=== PATIENT | female | born 1965 | race Caucasian/White ===

== ENCOUNTER → 2021-07-23 | Outpatient (CLI) | payer BC ==
[~2021-07-23] MED LIST: CETIRIZINE HCL10 MG PO; FLUTICASONE PROPIONA; VITAMIN B COMP1 EACH PO; VITAMIN D21250 MCG PO
[2021-07-23 09:24] LABS: HEMOGLOBIN 14.4 gm/dl (12.3-15.3); RED BLOOD COUNT 4.79 M/UL (4.00-5.10); WHITE BLOOD COUNT 8.5 K/UL (4.5-11.0)
[2021-07-23 09:39] LABS: BUN/CREATININE RATIO 20 (0-10)
== END ==
LOC: OPSV2 08:00
PROVIDERS: Orthopaedic Surgery
DX: Z01.812 Encounter for preprocedural laboratory examination (principal); G56.01 Carpal tunnel syndrome, right upper limb
CPT/HCPCS: 36415; 80048; 85025

== ENCOUNTER → 2021-07-26 | Day surgery (SDC) | payer BC ==
[~2021-07-26] VITALS: Ht 152.4 cm; Wt 96.2 kg
[~2021-07-26] MED LIST changes: +TRAMADOL HCL50 MG PO; +ZOFRAN 4 MG TAB4 MG PO
== END | disposition home or self-care (01) ==
LOC: OR 05:34
DX: G56.03 Carpal tunnel syndrome, bilateral upper limbs (principal); Z98.51 Tubal ligation status; Z90.3 Acquired absence of stomach [part of]; Z90.49 Acquired absence of other specified parts of digestive tract; Z86.16 Personal history of COVID-19; Z20.822 Contact with and (suspected) exposure to COVID-19; E66.9 Obesity, unspecified; Z68.41 Body mass index [BMI] 40.0-44.9, adult; E11.9 Type 2 diabetes mellitus without complications; K58.0 Irritable bowel syndrome with diarrhea
CPT/HCPCS: J1100; J2001; J2250; J2405; J2704; J3010; J7120

== ENCOUNTER → 2021-09-18 | Day surgery (SDC) | payer BC ==
[~2021-09-18] MED LIST changes: +ULTRAM50 MG PO; +VITAMIN C250 M1 PO; +ZYRTEC10 M3 PO
== END | disposition home or self-care (01) ==
LOC: OR 09:15
DX: G56.02 Carpal tunnel syndrome, left upper limb (principal); Z98.84 Bariatric surgery status; Z79.899 Other long term (current) drug therapy; Z20.822 Contact with and (suspected) exposure to COVID-19
CPT/HCPCS: J0690; J1100; J2001; J2250; J2405; J2704; J3010; J7120